=== PATIENT | female | born 1975 | race Caucasian/White ===

== ENCOUNTER 2017-04-23 09:18 | Outpatient (CLI) | payer OTHER ==
--- NOTE | 2017-04-23 14:22 | Ultrasound Report ---
Sonogram of the abdomen: History: Lower abdominal pain. Findings: Aortic diameter 1.6 cm. Uniform increase in echogenicity liver suggesting fatty liver. No mass. No intrahepatic duct dilatation. Common bile duct diameter 4 mm. Gallbladder wall thickness 2.6 mm. Single calculus identified within the gallbladder measuring 1.2 x 1.1 x 1.5 cm. No pericholecystic fluid. Right kidney 9.2 x 4.5 x 4.6 cm. Cortical thickness 2 cm. Left kidney 11.6 x 5 x 5.5 cm. Cortical thickness 2 cm. Spleen 10.5 cm. Pancreas obscured by bowel gas. Impression: Single calculus gallbladder. Fatty liver.
--- NOTE | 2017-04-23 14:25 | Ultrasound Report ---
Pelvic and transvaginal sonography: History: Lower abdominal pain. Findings: Uterus measures 9.7 x 4 x 5.5 cm. Endometrial thickness 5.8 mm. No mass in the myometrium. No fluid in the endometrium. Right ovary 3.4 x 2.1 x 0.2 cm. Ovarian Cyst/paraovarian right ovary measures 0.7 x 0.6 x 0.9 cm. Left ovary 3.4 x 2.5 x 2.5 cm. No mass. No fluid in the cul-de-sac. Impression: Right ovarian/paraovarian cyst.
== END 2017-04-23 09:19 | disposition home or self-care (01) ==
LOC: US 09:18
PROVIDERS: ATTEND Internal Medicine
DX: K80.20 Calculus of gallbladder without cholecystitis without obstruction (principal); K76.0 Fatty (change of) liver, not elsewhere classified; N83.292 Other ovarian cyst, left side
CPT/HCPCS: 76700; 76830; 76856

== ENCOUNTER 2017-11-03 11:05 | Outpatient (CLI) | payer OTHER ==
--- NOTE | 2017-11-04 16:52 | Mammography Report ---
BILATERAL DIGITAL SCREENING MAMMOGRAM with CAD : 11/03/17 11:05:00 CLINICAL: Routine screening. COMPARISON:None available. FINDINGS: The breasts are heterogeneously dense, which may obscure small masses.Extensive bilateral scattered calcifications with benign morphology. No mass, architectural distortion or suspicious calcifications. IMPRESSION: No mammographic evidence of malignancy. BI-RADS CATEGORY: 2 -- Benign RECOMMENDATION: Routine mammographic screening in one year. COMMENT: Patient follow-up letters are generated by our [employer] application.
== END 2017-11-03 11:06 | disposition home or self-care (01) ==
LOC: SPVWC 11:05
PROVIDERS: ATTEND Internal Medicine
DX: Z12.31 Encounter for screening mammogram for malignant neoplasm of breast (principal)
CPT/HCPCS: 77067